=== PATIENT | female | born 1945 | race Caucasian/White ===

== ENCOUNTER 2022-01-17 22:33 | Observation (INO) | payer MEDICARE, MEDICAID ==
[~2022-01-17] VITALS: Ht 170.2 cm; Wt 67.6 kg
[2022-01-17 22:56] LABS: HEMOGLOBIN 11.7 gm/dl (12.3-15.3); RED BLOOD COUNT 3.96 M/UL (4.00-5.10); WHITE BLOOD COUNT 9.9 K/UL (4.5-11.0)
[2022-01-17 23:26] LABS: BUN/CREATININE RATIO 11 (0-10)
--- NOTE | 2022-01-18 02:45 | NUR ---
NEURO CHECK 0240- PT HAS WEAKNESS IN BOTH RIGHT LEG AND ARM, DIFFERENCE IN GRASP STRENGTH. PT HAS SLIGHT NOTICEABLE DRIFT IN R ARM AND R LEG. PT IS ORIENTED TO SELF, WAS OFF BY ONE YEAR WITH HER AGE AND UNABLE TO DETERMINE YEAR OR MONTH. PUPILS ARE EQUAL AND REACTIVE TO LIGHT. PT WAS ABLE TO NAME THE PRESIDENT. PT'S SPEECH IS EASY TO UNDERSTAND. PT HAS NORMAL SENSATION TO ALL LIMBS.
[2022-01-18] MEDS ORDERED: SEROQUEL25 MG PO (03:45)
[2022-01-18] MEDS ORDERED: PAXIL10 MG PO (03:45)
[2022-01-19 03:08] LABS: HEMOGLOBIN 10.6 gm/dl (12.3-15.3); RED BLOOD COUNT 3.63 M/UL (4.00-5.10); WHITE BLOOD COUNT 8.3 K/UL (4.5-11.0)
[2022-01-19 03:39] LABS: BUN/CREATININE RATIO 11 (0-10)
[2022-01-20] MEDS ORDERED: CEFUROXIME250 MG PO (08:01)
[2022-01-20] MEDS ORDERED: ATORVASTATIN CA20 MG PO (08:01)
[2022-01-20] MEDS ORDERED: ASPIRIN EC81 MG PO (08:01)
== END 2022-01-20 10:35 | disposition home or self-care (01) ==
LOC: ER1 22:33 → PROG CARE 01-18 01:06 → CDU 01-18 01:06 → PROG CARE 01-18 01:06 → MED SURG 4 01-18 18:13 → M/S 01-18 18:18
PROVIDERS: Internal Medicine; Student in an Organized Health Care Education/Training Program; ADMIT Internal Medicine
DX: R53.1 Weakness (principal); Z20.822 Contact with and (suspected) exposure to COVID-19; N30.00 Acute cystitis without hematuria; B96.20 Unspecified Escherichia coli [E. coli] as the cause of diseases classified elsewhere; R29.810 Facial weakness; R01.1 Cardiac murmur, unspecified; R47.81 Slurred speech; F41.9 Anxiety disorder, unspecified; F32.A Depression, unspecified; E78.5 Hyperlipidemia, unspecified; F03.90 Unspecified dementia, unspecified severity, without behavioral disturbance, psychotic disturbance, mood disturbance, and anxiety; G93.40 Encephalopathy, unspecified; Z79.899 Other long term (current) drug therapy
CPT/HCPCS: ECHO; 36415; 70450; 70496; 70498; 70551; 80048; 80053; 80061; 81001; 82140; 82550; 82553; 82607; 83036; 83540; 83550; 83735; 84100; 84484; 85025; 85027; 85045; 85610; 85730; 86140; 87077; 87086; 87186; 92610; 93005; 93306; 97162; 97165; 99285; G0378; J0696; J1650; Q9967; U0002

== ENCOUNTER 2022-04-10 21:10 | Emergency (ER) | payer MEDICARE ==
[~2022-04-10 21:10] MED LIST: ASPIRIN EC81 MG PO; ATORVASTATIN CA20 MG PO; CEFUROXIME250 MG PO; PAXIL10 MG PO; SEROQUEL25 MG PO
[2022-04-10 21:56] LABS: HEMOGLOBIN 10.7 gm/dl (12.3-15.3); RED BLOOD COUNT 3.85 M/UL (4.00-5.10); WHITE BLOOD COUNT 9.9 K/UL (4.5-11.0)
[2022-04-10 22:13] LABS: BUN/CREATININE RATIO 8 (0-10)
== END 2022-04-11 03:15 | disposition home or self-care (01) ==
LOC: ER1 21:10
PROVIDERS: Physician Assistant
DX: F03.90 Unspecified dementia, unspecified severity, without behavioral disturbance, psychotic disturbance, mood disturbance, and anxiety (principal); D64.9 Anemia, unspecified; R73.9 Hyperglycemia, unspecified; Z20.822 Contact with and (suspected) exposure to COVID-19
CPT/HCPCS: 51701; 71045; 80053; 81001; 82550; 82553; 84484; 85025; 87086; 93005; 99284; U0002

== ENCOUNTER 2022-04-20 15:28 | Inpatient (IN) | payer MEDICARE, MEDICAID ==
[~2022-04-20] VITALS: Ht 165.1 cm; Wt 65.6 kg
[2022-04-20 17:14] LABS: HEMOGLOBIN 10.3 gm/dl (12.3-15.3); RED BLOOD COUNT 3.71 M/UL (4.00-5.10); WHITE BLOOD COUNT 9.7 K/UL (4.5-11.0)
[2022-04-21 01:27] LABS: HEMOGLOBIN 8.9 gm/dl (12.3-15.3); WHITE BLOOD COUNT 8.1 K/UL (4.5-11.0)
[2022-04-21 01:30] LABS: RED BLOOD COUNT 3.25 M/UL (4.00-5.10)
[2022-04-21 01:52] LABS: BUN/CREATININE RATIO 16 (0-10)
--- NOTE | 2022-04-21 10:21 | NUR ---
PATIENTS FAMILY INFORMED US TO PUT IN THE WORD SCOTT FOR HER HIPPA PASSWORD
[2022-04-22 02:30] LABS: HEMOGLOBIN 8.4 gm/dl (12.3-15.3); RED BLOOD COUNT 3.04 M/UL (4.00-5.10); WHITE BLOOD COUNT 7.3 K/UL (4.5-11.0)
[2022-04-23 06:55] LABS: HEMOGLOBIN 8.7 gm/dl (12.3-15.3); RED BLOOD COUNT 3.3 M/UL (4.00-5.10); WHITE BLOOD COUNT 7.2 K/UL (4.5-11.0)
[2022-04-23 15:10] LABS: HEMATOCRIT 25.6 % (34.0-46.6)
[2022-04-24 06:30] LABS: HEMOGLOBIN 8.7 gm/dl (12.3-15.3); RED BLOOD COUNT 3.22 M/UL (4.00-5.10)
[2022-04-26 08:15] LABS: HEMOGLOBIN 8.3 gm/dl (12.3-15.3); RED BLOOD COUNT 3.2 M/UL (4.00-5.10); WHITE BLOOD COUNT 8.1 K/UL (4.5-11.0)
--- NOTE | 2022-04-26 17:44 | NUR ---
174- NOTIFIED DR DICKERSON OF PATIENT IV SITE IN LEFT HAND, PAIN, SWELLING. NO NEW ORDERS AT THIS TIME.
== END 2022-04-26 20:28 | DRG 744 ==
LOC: ER1 15:28 → MED SURG 4 23:15 → CDU 23:15 → MED SURG 4 04-21 00:16
PROVIDERS: Internal Medicine; Internal Medicine Hematology & Oncology; Internal Medicine Infectious Disease; Obstetrics & Gynecology; ADMIT Internal Medicine
PROC: 0UDB8ZZ Extraction of Endometrium, Via Natural or Artificial Opening Endoscopic (ICD-10-PCS; principal; 2022-04-23 09:00)
DX: C55 Malignant neoplasm of uterus, part unspecified (principal); C77.2 Secondary and unspecified malignant neoplasm of intra-abdominal lymph nodes; Z20.822 Contact with and (suspected) exposure to COVID-19; N13.1 Hydronephrosis with ureteral stricture, not elsewhere classified; N17.9 Acute kidney failure, unspecified; E87.2 Acidosis; C54.1 Malignant neoplasm of endometrium; F32.A Depression, unspecified; F41.9 Anxiety disorder, unspecified; D64.9 Anemia, unspecified; R59.1 Generalized enlarged lymph nodes; E86.0 Dehydration; N71.9 Inflammatory disease of uterus, unspecified; R62.7 Adult failure to thrive; D50.9 Iron deficiency anemia, unspecified; G30.1 Alzheimer's disease with late onset; F02.80 Dementia in other diseases classified elsewhere, unspecified severity, without behavioral disturbance, psychotic disturbance, mood disturbance, and anxiety; Z79.01 Long term (current) use of anticoagulants; Z86.73 Personal history of transient ischemic attack (TIA), and cerebral infarction without residual deficits; Z79.82 Long term (current) use of aspirin; Z80.3 Family history of malignant neoplasm of breast
CPT/HCPCS: 36415; 70450; 71250; 76856; 80048; 80053; 81001; 82550; 82553; 82607; 82728; 82747; 83036; 83540; 83550; 83605; 83615; 83690; 83921; 83930; 84439; 84443; 84484; 84550; 85025; 85027; 86304; 96360; 99285; C9113; J1100; J1650; J1756; J2001; J2370; J2405; J2704; J3010